=== PATIENT | male | born 2000 | race Caucasian/White ===

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

== ENCOUNTER → 2022-05-12 | Outpatient (CLI) | payer MEDICAID, SELFPAY ==
[2022-05-12 16:41] LABS: Absolute Lymphocyte Count 2.19 X10^3/uL (0.83-4.51); Absolute Neutrophil Count 5.1 X10^3/uL (2.0-7.7); Basophil# 0.04 X10^3/uL; Basophil% 0.5 % (0-1); Eosinophil# 0.21 X10^3/uL; Eosinophils% 2.6 % (0-5); Hematocrit 45.1 % (40-54); Hemoglobin 14.9 g/dL (13.0-16.5); Lymphocyte # 2.19 X10^3/ul (0.83-4.51); Lymphocyte % 26.9 % (19-41); Mean Corpuscular Hgb 28.1 pg (27.0-32.0); Mean Corpuscular Volume 85.1 fL (80-94); Mean Platelet Vol. 10.9 fl (6.2-12.0); Monocyte# 0.58 X10^3/uL; Monocyte% 7.1 % (0-10); NRBC Flagged by Analyzer 0 % (0-5); Neutrophil % 62.5 % (47-70); Platelet Count 280 K/mm3 (150-450); RBC Distribution Width CV 13.6 % (11.6-14.6); RBC Distribution Width SD 42.4 fl (35.1-43.9); White Blood Count 8.2 K/mm3 (4.4-11.0)
[2022-05-12 16:55] LABS: Erythrocyte Sedimentation Rate 25 mm/hr (0-20)
[2022-05-12 17:39] LABS: Ferritin 16 ng/mL (26-388); Free T3 2.9 pg/mL (2.18-3.98)
[2022-05-12 17:58] LABS: HIV - WCH Non-Reactive (Nonreactive); Rubella IgG Reactive (Nonreactive); Vitamin B12 478 pg/mL (211-911); Vitamin D,25 Hydroxy 19.9 ng/mL
[2022-05-15 16:09] LABS: Endomysial Antibody IgA Negative (Negative)
[2022-05-15 23:24] LABS: Immunoglobulin A 234 mg/dL (90-386); t-Transglutaminase IgA <2 U/mL (0-3)
[2022-05-16 16:09] LABS: Anti-Centromere B Ab <0.2 AI (0.0-0.9); Anti-Chromatin <0.2 AI (0.0-0.9); Anti-Jo <0.2 AI (0.0-0.9); Anti-Scleroderma-70 AB <0.2 AI (0.0-0.9); RNP Ab <0.2 AI (0.0-0.9); SJOGREN'S Anti-SS-A test < 0.2 AI (0.0-0.9); SJOGREN'S Anti-SS-B test < 0.2 AI (0.0-0.9); Smith Ab <0.2 AI (0.0-0.9)
[2022-05-16 18:36] LABS: Anti-dsDNA Ab <1 IU/mL (0-9); Vitamin D 1,25-Dihydroxy 51.8 pg/mL (24.8-81.5)
[2022-05-21 14:07] LABS: Albumin 3.1 g/dL (2.9-4.4); Alpha-1-Globulins 0.2 g/dL (0.0-0.4); Cytoplasmic Ab (C-ANCA) <1:20 titer (Neg:<1:20); Gamma Globulin 0.9 g/dL (0.4-1.8); HEPATITIS B SURFACE AG Negative (Negative); Hep C Antibodies <0.1 s/co ratio (0.0-0.9); Hepatitis A IgM Antibody Negative (Negative); Hepatitis B Core AB IgM Negative (Negative); Immunoglobulin A 232 mg/dL (90-386); Immunoglobulin G 973 mg/dL (603-1613); Immunoglobulin M 75 mg/dL (20-172); PROEL- TOTAL PROTEIN 6.4 g/dL (6.0-8.5); QNTFERON TB Mitogen Value > 10.00 IU/mL (.); QNTFERON TB Nil Value 0.04 IU/mL (.); QNTFERON TB1+ Ag Value 0.05 IU/mL (.); QNTFERON TB2+ Ag Value 0.04 IU/mL (.)
[2022-05-21 15:36] LABS: B. pertussis IgG 3.33 index (0.00-0.94); CMV Acute Antibody IgM < 30.0 AU/mL (0.0-29.9); CMV Antibody IgG < 0.60 U/mL (0.00-0.59); Immunoglobulin E 850 IU/mL (6-495); Mumps Antibody, IgM < 0.80 AU (0.00-0.79); Perinuclear Ab (P-ANCA) <1:20 titer (Neg:<1:20); QNTIFERON TB Positive Criteria Negative (Negative); V-Zoster IgG (Immunity) 280 index (Immune >165)
== END | disposition home or self-care (01) ==
PROVIDERS: Visit Provider Internal Medicine Gastroenterology
DX: K25.9 Gastric ulcer, unspecified as acute or chronic, without hemorrhage or perforation (principal); K50.90 Crohn's disease, unspecified, without complications
CPT/HCPCS: 36415; 80074; 82306; 82607; 82652; 82728; 82784; 82785; 83516; 84165; 84443; 84481; 85025; 85652; 86140; 86225; 86235; 86255; 86256; 86334; 86480; 86615; 86644; 86645; 86703; 86735; 86762; 86787

== ENCOUNTER → 2022-07-13 | Outpatient (CLI) | payer MEDICAID, SELFPAY ==
--- NOTE | 2022-07-13 11:00 | RAD_ITS ---
INDICATION: CERVICAL SPRAIN EXAMINATION/TECHNIQUE: X-RAY - XR Spine Cervical 6 Views COMPARISON: None. FINDINGS: VERTEBRAE: Preserved vertebral body height. No fracture. No spondylolisthesis. Preservation of the normal cervical lordosis. No significant facet arthropathy. The neuroforamina are patent. DISCS: Disc spaces are maintained. NECK SOFT TISSUES: No prevertebral soft tissue widening. LUNG APICES: Clear. RAD/Cerv Spine 4 or 5 Views IMPRESSION: No evidence of acute fracture or spondylolisthesis. Electronically Signed: Ligia Menendez MD at 11:41 EDT ,
== END | disposition home or self-care (01) ==
LOC: RAD 10:54
PROVIDERS: Visit Provider Chiropractor
DX: S13.4XXA Sprain of ligaments of cervical spine, initial encounter (principal)
CPT/HCPCS: 72050

== ENCOUNTER 2022-09-11 17:30 | Outpatient (RCR) | payer MEDICAID, SELFPAY ==
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
--- NOTE | 2022-09-11 17:57 | HP.PTDCSUM_ITS ---
It has been my pleasure to treat AMERICO MAYS referred by NELA MESA, with the diagnosis of OCCIPITAL NEURALGIA for a total of 14 visit(s). Discharge Date: Please see the following information for a summary of their discharge status. Subjective: Patient has pain grossly back and arms. BALLESTEROS are more manageable. Sleeping is improving. Bilateral Neck Pain Intensity (Out of 10): 2 % Improvement: 50 Objective/Function: POSTURE: WFL. NEURO: intact. CERVICAL ROM: fle xion/extension/lateral flexion WFL. MMT: BUE 4/5 shoulders 4-/5 Goal 1:: Patient to be I with HEP Goal Progress: Goal Met Goal 2:: Patient to demonstrate 40% improvement with increase function and less pain/BALLESTEROS Goal Progress: Goal Met Goal 3:: Patient to improve cervical ROM for functional activities and reading Goal Progress: Goal Met Goal 4:: Patient to improve neck oswestry score by 5 points to improve QOL. Goal Progress: Goal Met Plan: D/C If there are questions or concerns regarding this patient's physical therapy, please feel free to call me at [phone]. Thank you for the referral of this patient. Sincerely, Omari Sher, PT, Cert MDT, OCS Balance/Gait/Functional tests - Balance/Special Test Scores Oswestry Neck Score: 13
== END 2022-09-11 19:00 | disposition home or self-care (01) ==
LOC: PT 17:30
DX: M54.81 Occipital neuralgia (principal)
CPT/HCPCS: 97012; 97110; 97113; 97140; 97162; 97530

== ENCOUNTER → 2022-10-23 | Outpatient (CLI) | payer MEDICAID, SELFPAY ==
--- NOTE | 2022-10-23 06:39 | MRI_ITS ---
STUDY: MRI CERVICAL SPINE WITHOUT CONTRAST REASON FOR EXAM: Male, 22 years old. Cervical radiculopathy and pain in skull base. TECHNIQUE: Standardized fat and water weighted pulse sequences were obtained in the sagittal and axial planes. COMPARISON: Cervical spine radiographs 07/13/2022. FINDINGS: Normal foramen magnum and brainstem-cervical cord junction. Normal craniovertebral junction. Normal anterior atlantoaxial articulation. Normal odontoid process. Straightening of the C-spine curvature. Normal vertebral bodies and posterior osseous elements. C2-3: Normal endplates. Normal disc height, signal and morphology. Normal central canal and intervertebral neural foramina. C3-4: Moderate posterior wedging of the lower C3 vertebral body is most likely developmental. Normal C4 superior endplate. This accounts for the increased posterior disc space height. Normal disc signal and morphology. Normal central canal and intervertebral neural foramina. C4-5: Mild posterior wedging of the lower C4 vertebral body is most likely developmental. Normal C5 superior endplate. Normal disc height, signal and morphology. Normal central canal and intervertebral neural foramina. C5-6: Normal endplates. Normal disc height, signal and morphology. Normal central canal and intervertebral neural foramina. C6-7: Mild posterior wedging of the posterior C7 superior endplate is most likely developmental. This accounts for the increased posterior disc space height. Normal C6 inferior endplate. Normal disc signal and morphology. Normal central canal and intervertebral neural foramina. C7-T1: Normal endplates. Normal disc height, signal and morphology. Normal central canal and intervertebral neural foramina. T1-T2, T2-T3 and T3-T4: (Sagittal only). Normal endplates. Normal disc height, signal and morphology. Normal central canal and intervertebral neural foramina. Normal cervical cord. Normal included upper thoracic spinal cord. Normal included brainstem and cerebellum. Normal visualized soft tissue structures. MRI/Spine Cervical (Routine) IMPRESSION: 1. No MRI evidence of cervical extruded disc fragment, disc protrusion, spinal stenosis or nerve root displacement. 2. Normal cervical spinal cord. Electronically Signed: Leighton Marsh MD at 16:02 EDT ,
== END | disposition home or self-care (01) ==
LOC: MRI 06:32
PROVIDERS: PCP Internal Medicine; Referring Provider Anesthesiology Pain Medicine; Visit Provider Anesthesiology Pain Medicine
DX: M54.12 Radiculopathy, cervical region (principal)
CPT/HCPCS: 72141

== ENCOUNTER 2022-11-02 15:39 | Emergency (ER) | payer MEDICAID, SELFPAY ==
[2022-11-02 15:40] VITALS: BP 120/80; PULSE 67; RESP 17; TEMP 36.3; O2SAT 99; BMI 20.4
[2022-11-02] MEDS: Morphine 4 MG/ML Syringe IM (16:47)
[2022-11-02] MEDS: Ibuprofen 600 MG Tablet PO (16:47)
--- NOTE | 2022-11-02 16:54 | ED.VIS.DENTA ---
HPI History of Present Illness Chief Complaint: Dental Informant: patient and parent Narrative Narrative: Patient is a 22-year-old male with history of tobacco use. Patient had 8 teeth removed today and a dentist in [place]. He went to [facility] and saw Dr. Phipps. He was prescribed ibuprofen 800 mg. He states he cannot swallow it and so he came to the ER for further evaluation. Denies any difficulty opening his mouth, or abnormal bleeding. He states he just could not handle the large pills. Did not try taking any [id number] medicine. No other complaints or concerns at this time. [facility] Medical History ADHD Anxiety Bipolar disorder Colonoscopy planned GERD (gastroesophageal reflux disease) Migraine Home Medications cetirizine 10 mg tablet (Zyrtec) 10 mg PO DAILY 09/09/21 [History Last Taken Unknown] omeprazole 40 mg capsule,delayed release 40 mg PO DAILY 09/09/21 [History Last Taken Unknown] sucralfate 1 gram tablet 1 g PO QACHS 12/01/21 [History Last Taken Unknown] prednisone 20 mg tablet 20 mg PO DAILY #10 tabs 05/12/22 [Rx Last Taken Unknown] risankizumab-rzaa 180 mg/1.2 mL (150 mg/mL) subcut wearable injector (Skyrizi) 180 mg (1.2 mL) subcut Q8W #1.2 mL 06/06/22 [Rx Last Taken Unknown] risankizumab-rzaa 60 mg/mL intravenous solution (Skyrizi) 600 mg (10 mL) .Route .COMPLEX #10 mL 06/06/22 [Rx Last Taken Unknown] Allergy/AdvReac Type Severity Reaction Status Date / Time cefdinir [From Omnicef] Allergy Other Verified 11/02/22 15:42 ketorolac [From Toradol] Allergy Other Verified 11/02/22 15:42 Penicillins Allergy Other Verified 11/02/22 15:42 tree nut Allergy Shortness Verified 11/02/22 15:42 of breath Social History household members: none Smoking Status: Current every day smoker tobacco type: cigarettes substance use type: marijuana ROS ROS ED Constitutional Constitutional ED: Denies chills or fever(s) Eyes Eyes: Denies change in vision ENT ENT ED: Reports other Details: dental pain, recent tooth extraction Cardiovascular Cardiovascular: Denies chest pain Respiratory/Chest Respiratory/Chest: Denies dyspnea Gastrointestinal Gastrointestinal: Denies nausea or vomiting Musculoskeletal Musculoskeletal: Denies arthralgias or neck pain Neurologic Neurologic: Denies headache(s) EXAM Physical Exam Const Vital Signs: 11/02/22 15:40 Temperature 97.3 F L Temperature Source Temporal Pulse Rate 67 Respiratory Rate 17 Blood Pressure 120/80 Blood Pressure Mean 93 Pulse Ox 99 Oxygen Delivery Method Room Air Positive well nourished and well developed General Appearance ED: well developed and NAD HEENT HEENT Narrative: Normal nose. No trismus. Patient has packing in his mouth and evidence of recent dental extraction. No active bleeding. No signs of dry socket at this time. No drooling, handling secretions well. Muffled voice but is talking with gauze packing in his mouth. Normal oropharynx. Negative for trauma Eyes PERRL and EOMs intact bilaterally Neck supple Neck Narrative: no stridor Resp normal respiratory effort and clear to auscultation bilaterally Cardio regular rate and regular rhythm Neuro oriented x3 Sensorium / Orientation: alert Psych mental status grossly normal Skin no rashes or lesions noted and no wounds MDM MDM MDM Narrative Medical decision making narrative: Patient is evaluated for dental pain postextraction. His main issue is he cannot swallow ibuprofen 800 pills is too large. He does not have trismus. No signs of airway obstruction. He is not in intractable pain. He cannot have IM Toradol because it causes anxiety. We will crush up some ibuprofen so he can better swallow it and also given 1 dose of IM morphine. Counseled that he will need to follow-up with his dentist for further pain control. Counseled he can also buy children's ibuprofen or Tylenol and take that if the liquid is easier for him to take. Given return precautions. Discharged home in stable condition. Discharge Plan Triage Chief Complaint: Dental ED Provider: Mayelin Sales Dx/Rx/DC Orders Clinical Impression: Pain, dental Prescriptions: No Action sucralfate 1 gram tablet 1 g PO QACHS prednisone 20 mg tablet 20 mg PO DAILY Qty: 10 2RF cetirizine [Zyrtec] 10 mg Tablet 10 mg PO DAILY omeprazole 40 mg Capsule,Delayed Release(Dr/Ec) 40 mg PO DAILY Skyrizi 60 mg/mL solution 600 mg .ROUTE .COMPLEX Qty: 10 2RF Rx Instructions: 600 mg; Skyrizi 180 mg/1.2 mL (150 mg/mL) wearable injector 180 mg subcut Q8W Qty: 1.2 5RF Primary Care Provider: Tito Mendieta Referrals: Tito Mendieta MD [Primary Care Provider] - Activity Restrictions/Additional Instructions: Do not smoke. At this will really affect her ability to heal from this dental extraction increase her risk of something called dry socket. You can crush up any formulation of ibuprofen and mix it in with either liquid or something like pudding or applesauce. Patient is drinking enough fluids. Please call your dentist to be a further issues with your pain control.
[2022-11-02 17:05] VITALS: O2SAT 100
== END 2022-11-02 17:06 | disposition home or self-care (01) ==
PROVIDERS: Emergency Provider Emergency Medicine; PCP Internal Medicine; Visit Provider Emergency Medicine
DX: K08.89 Other specified disorders of teeth and supporting structures (principal); K21.9 Gastro-esophageal reflux disease without esophagitis; F17.210 Nicotine dependence, cigarettes, uncomplicated
CPT/HCPCS: 96372; 99283

== ENCOUNTER 2023-01-16 15:21 | Emergency (ER) | payer MEDICAID, SELFPAY ==
[2023-01-16 15:21] VITALS: BP 124/76; PULSE 80; RESP 18; TEMP 38.2; O2SAT 100
--- NOTE | 2023-01-16 15:49 | ED.RN ---
PT LWBS [id number]
== END 2023-01-16 15:48 | disposition left against medical advice (07) ==
LOC: ED 15:56
PROVIDERS: PCP Internal Medicine
DX: M54.9 Dorsalgia, unspecified (principal)

== ENCOUNTER → 2023-01-17 | Outpatient (CLI) | payer MEDICAID, SELFPAY ==
[2023-01-17 16:56] LABS: CPK Total, Creatine Kinase 63 U/L (39-308)
== END | disposition home or self-care (01) ==
PROVIDERS: PCP Internal Medicine; Referring Provider Nurse Practitioner; Visit Provider Nurse Practitioner
DX: M79.10 Myalgia, unspecified site (principal)
CPT/HCPCS: 82565; 82550

== ENCOUNTER 2023-01-23 18:16 | Emergency (ER) | payer MEDICAID, SELFPAY ==
[2023-01-23 18:18] VITALS: BP 114/82; PULSE 84; RESP 16; TEMP 36.2; O2SAT 95; BMI 24.1
--- NOTE | 2023-01-23 18:32 | EDS_ITS ---
<Statement entered by Kaley Garduno MD - 01/23/23 20:11> I have personally performed a face to face assessment of the patient and have reviewed the TONYA Note. Patient presents secondary to dental pain. He states he had one of his right upper molars extracted a couple months ago. He states the dentist told him that there were still a few pieces left but it should not cause problems. Patient states he had trouble getting the site to heal over and recently noted a pus pocket that drained. Patient is in no acute distress. No facial edema or erythema. He speaks with a strong voice and tolerate secretions well. Intraoral examination reveals gum irritation to prior extraction site in the right maxillary surface. No focal abscess appreciated at this time. Posterior pharynx is unremarkable. Patient will be started on antibiotics. He was advised to contact his dentist for close follow-up. Return instructions given. HPI History of Present Illness Chief Complaint: Dental Narrative Narrative: 22-year-old male states he had a right upper molar extracted several months ago. He has had increased pain in the area over the last few days. He feels right- sided facial pressure and is concerned there is an infection. When he pushed on the gumline 2 days ago it spontaneously expressed pus. No fever or chills. No difficulty swallowing or breathing. He has a dental appointment at the end of January. Triage note also reported a fall yesterday. He states he lost his balance and fell onto his butt. It was witnessed and there was no head injury or loss of consciousness. [facility] Medical History ADHD Anxiety Bipolar disorder Colonoscopy planned GERD (gastroesophageal reflux disease) Migraine Home Medications cetirizine 10 mg tablet (Zyrtec) 10 mg PO DAILY 09/09/21 [History Last Taken Unknown] omeprazole 40 mg capsule,delayed release 40 mg PO DAILY 09/09/21 [History Last Taken Unknown] sucralfate 1 gram tablet 1 g PO QACHS 12/01/21 [History Last Taken Unknown] prednisone 20 mg tablet 20 mg PO DAILY #10 tabs 05/12/22 [Rx Last Taken Unknown] risankizumab-rzaa 180 mg/1.2 mL (150 mg/mL) subcut wearable injector (Skyrizi) 180 mg (1.2 mL) subcut Q8W #1.2 mL 06/06/22 [Rx Last Taken Unknown] risankizumab-rzaa 60 mg/mL intravenous solution (Skyrizi) 600 mg (10 mL) .Route .COMPLEX #10 mL 06/06/22 [Rx Last Taken Unknown] clindamycin HCl 150 mg capsule 450 mg (3 x 150 mg) PO TID 7 days #63 caps 01/23/23 [Rx Last Taken Unknown] Allergy/AdvReac Type Severity Reaction Status Date / Time cefdinir [From Omnicef] Allergy Other Verified 01/23/23 18:22 ketorolac [From Toradol] Allergy Other Verified 01/23/23 18:22 Penicillins Allergy Other Verified 01/23/23 18:22 tree nut Allergy Shortness Verified 01/23/23 18:22 of breath Social History household members: none Smoking Status: Current every day smoker tobacco type: cigarettes substance use type: marijuana ROS ROS ED ROS Narrative Constitutional: Negative for fever, chills, malaise. ENT: Negative for sore throat. Respiratory: Negative for shortness of breath. GI: Negative for nausea, vomiting. Neuro: Negative for headache. EXAM Physical Exam Narrative Exam Narrative: CONST: Patient sitting in no acute distress. EYES: Normal inspection. ENT: Right upper second molar extraction site is tender, no swelling or periapical abscess, no trismus or tongue elevation, sublingual space is soft, moist mucous membranes with normal posterior oropharynx. NECK: Normal inspection. Trachea midline, no masses or tenderness, no meningismus. RESP: No respiratory distress, CTAB. CVS: Regular rate and rhythm, no murmur, no gallop. SKIN: Color normal, no rash, warm, dry, intact. EXTREMITIES: Normal appearance, no pedal edema. NEURO: Oriented x4. PSYCH: Normal affect. Const Vital Signs: 01/23/23 18:18 Temperature 97.1 F L Temperature Source Temporal Pulse Rate 84 Respiratory Rate 16 Blood Pressure 114/82 H Blood Pressure Mean 92 Pulse Ox 95 Oxygen Delivery Method Room Air MDM MDM MDM Narrative Medical decision making narrative: History gathered from: Patient and family member Patient has right upper dental pain over area of previous molar extraction site. He reports it spontaneously drained pus 2 days ago after pushing on the area. He appears well and nontoxic. Vital signs stable. There is no sign of a periapical abscess currently. No Elliot's angina. The extraction was several months ago so this is not dry socket. I prescribed clindamycin since he is penicillin allergic and recommended follow-up with his dentist. He was discharged in stable condition. Differential: Dental caries, dental abscess, Elliot's angina Discharge Plan Triage Chief Complaint: Dental ED Midlevel Provider: Gaby Mehta ED Provider: Kaley Garduno Dx/Rx/DC Orders Clinical Impression: Dental abscess Instructions: Dental Abscess Prescriptions: New clindamycin HCl 150 mg capsule 450 mg PO TID 7 Days Qty: 63 0RF No Action sucralfate 1 gram tablet 1 g PO QACHS prednisone 20 mg tablet 20 mg PO DAILY Qty: 10 2RF cetirizine [Zyrtec] 10 mg Tablet 10 mg PO DAILY omeprazole 40 mg Capsule,Delayed Release(Dr/Ec) 40 mg PO DAILY Skyrizi 60 mg/mL solution 600 mg .ROUTE .COMPLEX Qty: 10 2RF Rx Instructions: 600 mg; Skyrizi 180 mg/1.2 mL (150 mg/mL) wearable injector 180 mg subcut Q8W Qty: 1.2 5RF Primary Care Provider: Tito Mendieta Referrals: Tito Mendieta MD [Primary Care Provider] - Activity Restrictions/Additional Instructions: Follow-up with your dentist Disposition Disposition: Home, Self Care
[2023-01-23] MEDS: Clindamycin HCl 150 MG Capsule 450 MG PO (18:55)
== END 2023-01-23 18:59 | disposition home or self-care (01) ==
LOC: ED 18:41
PROVIDERS: Emergency Provider Emergency Medicine; PCP Internal Medicine; Visit Provider Emergency Medicine
DX: K04.7 Periapical abscess without sinus (principal); F17.210 Nicotine dependence, cigarettes, uncomplicated; K21.9 Gastro-esophageal reflux disease without esophagitis; Z79.899 Other long term (current) drug therapy
CPT/HCPCS: 99284